=== PATIENT | female | born 1940 | race Caucasian/White ===

== ENCOUNTER 2024-09-07 11:24 | Outpatient (CLI) | payer MEDICARE | END 2024-09-07 11:25 | disposition home or self-care (01) | LOC: LABBT 11:24 | PROVIDERS: ATTEND Thoracic Surgery (Cardiothoracic Vascular Surgery) | DX: Z01.818 Encounter for other preprocedural examination (principal); I25.10 Atherosclerotic heart disease of native coronary artery without angina pectoris | CPT/HCPCS: 71046; 93005; 93010 ==

== ENCOUNTER 2024-09-07 11:30 | Inpatient (IN) | payer MEDICARE ==
[2024-09-07 12:56] LABS: #Basophils 0.04 10x3/uL (0.0-0.2); %Basophils 0.7 % (0.0-1.0); %Eosinophils 1.1 % (0.0-10.0); %Lymphocytes 23.8 % (21.0-51.0); %Monocytes 8.5 % (0.0-10.0); %Neutrophils 65.6 % (42.0-75.0); Hematocrit 42.1 % (36.0-47.0); Hemoglobin 14.1 g/dL (12.0-16.0); Mean Corpuscular HGB CONC 33.5 g/dL (32.0-36.0); Mean Corpuscular Hemoglobin 30.1 pg (27.0-31.0); Mean Platelet Volume 11.3 fL (7.4-10.4); Platelet Count 196 10x3/uL (130-400); RBC Distribution Width 12.9 % (11.5-14.5); Red Blood Cell (RBC) Count 4.68 mill/uL (4.20-5.40)
[2024-09-07 13:20] LABS: Anion Gap 16 mmol/L (10-20); BUN (Urea Nitrogen) 17 mg/dL (9.8-20.1); Calc. Creatinine Clearance 55 mL/min (70-130); Calcium 9.2 mg/dL (7.8-10.44); Carbon Dioxide 25 mmol/L (23-31); Chloride 102 mmol/L (98-107); Estimated GFR 51; Glucose 99 mg/dL (83-110); Potassium 3.6 mmol/L (3.5-5.1); Sodium 139 mmol/L (136-145)
[2024-09-08] MEDS ORDERED: Dexamethasone 4 mg/ml Vial ONE (06:23)
[2024-09-08] MEDS ORDERED: EPINEPHrine 1 MG/ML VIAL ONE (06:23)
[2024-09-08] MEDS ORDERED: Albumin 5% 500 ML ONE (06:24)
[2024-09-08] MEDS ORDERED: Bupivacaine PF 0.5% 30 ML VIAL ONE (06:24)
[2024-09-08] MEDS ORDERED: PHENYLEPHRINE-NS 100 MCG/ML 10 ML SYRINGE ONE ×3 (06:24→11:02)
[2024-09-08] MEDS ORDERED: Lidocaine 1% MPF 2 ML VIAL ONE (06:31)
[2024-09-08] MEDS ORDERED: PROPOFOL 20 ML ONE (06:35)
[2024-09-08] MEDS ORDERED: Rocuronium Bromide 10 MG/ML (10ML VIAL) ONE ×2 (06:35→08:31)
[2024-09-08] MEDS ORDERED: Ondansetron PF 4 MG/2 ML Vial ONE (06:35)
[2024-09-08] MEDS ORDERED: Fentanyl 250 MCG/5 ML VIAL ONE (06:35)
[2024-09-08] MEDS ORDERED: Midazolam HCl 2 mg/2 ml Vial ONE (06:35)
[2024-09-08] MEDS ORDERED: Lidocaine 1% PF 5 ML VIAL ONE (06:35)
[2024-09-08] MEDS ORDERED: Dexamethasone 20 MG/5 ML VIAL ONE (06:35)
[2024-09-08] MEDS ORDERED: Etomidate 40 MG (20 mL) VIAL ONE (06:36)
[2024-09-08] MEDS ORDERED: Heparin 10,000 UNITS/1 ML VIAL 30,000 UNITS in Sodium Chloride 0.9% 1,000 ML FS SCH (06:45)
[2024-09-08] MEDS ORDERED: Aminocaproic Acid 5 GM/20 ML VIAL ONE (06:54)
[2024-09-08] MEDS ORDERED: Magnesium 5 GM/10 ML VIAL ONE (06:54)
[2024-09-08] MEDS ORDERED: Potassium Chloride 60 mEq (30 mL) VIAL ONE (06:54)
[2024-09-08] MEDS ORDERED: Sodium Bicarb 50 mEq/50 ML VIAL ONE (06:54)
[2024-09-08] MEDS ORDERED: Calcium Chloride 1 GM/10 ML Abboject SYRINGE ONE (06:54)
[2024-09-08] MEDS ORDERED: Vancomycin 1 GM VIAL ONE (06:54)
[2024-09-08] MEDS ORDERED: Papaverine 60 MG/2 ML VIAL ONE (06:54)
[2024-09-08] MEDS ORDERED: Lidocaine 2% PF 100 mg/5 ml Syringe ONE (06:54)
[2024-09-08] MEDS ORDERED: Heparin 30,000 units/30 ml VIAL ONE (06:54)
[2024-09-08] MEDS ORDERED: Thrombin 5000 UNITS/5 ML VIAL ONE (06:54)
[2024-09-08] MEDS ORDERED: Protamine Sulfate 250 MG/25 ML VIAL ONE (06:54)
[2024-09-08] MEDS ORDERED: Cardioplegic Soln 1,000 ML BAG ONE (06:54)
[2024-09-08] MEDS ORDERED: Mannitol 12.5 GM/50 ML ONE (06:54)
[2024-09-08] MEDS ORDERED: Heparin 5,000 UNITS/ML VIAL ONE (06:54)
[2024-09-08] MEDS ORDERED: CEFAZOLIN 2 GM VIAL ONE (06:59)
[2024-09-08] MEDS ORDERED: Esmolol 100 MG/10 ML VIAL ONE (07:39)
[2024-09-08] MEDS ORDERED: NOREPINEPHRINE 8 MG/250 ML-D5W 250 ML ONE (09:43)
[2024-09-08] MEDS ORDERED: Amiodarone 150 MG/3 ML VIAL ONE (09:59)
[2024-09-08] MEDS ORDERED: Insulin Regular, Human 100 UNIT/ML 10 ML VIAL ONE (10:23)
[2024-09-08] MEDS ORDERED: Guaifenesin DM 100-10/5 ML UDCUP PO PRN (10:56)
[2024-09-08] MEDS ORDERED: traMADol HCl 50 MG TAB PO PRN (10:56)
[2024-09-08] MEDS ORDERED: Hetastarch 6% 500 ML 500 ML IVPB PRN (10:56)
[2024-09-08] MEDS ORDERED: Bisacodyl 10 MG SUPP PR PRN (10:56)
[2024-09-08] MEDS ORDERED: Acetaminophen 325 MG TAB PO PRN (10:56)
[2024-09-08] MEDS ORDERED: Ipratropium/Albuterol 3 ML NEB NEB PRN (10:56)
[2024-09-08] MEDS ORDERED: Mag-Al 1200 mg/1200 mg/30 ML UDCUP PO PRN (10:56)
[2024-09-08] MEDS ORDERED: Morphine 2 MG/ML VIAL SLOW IVP PRN (10:56)
[2024-09-08] MEDS ORDERED: niCARdipine 25 MG in Sodium Chloride 0.9% 250 ML 250 ML IVPB PRN (10:56)
[2024-09-08] MEDS ORDERED: NOREPINEPHRINE 8 MG/250 ML-D5W 250 ML IVPB PRN (10:56)
[2024-09-08] MEDS ORDERED: Bisacodyl 5 MG TAB PO PRN (10:56)
[2024-09-08] MEDS ORDERED: fentaNYL 50 mcg/mL 1 mL Vial SLOW IVP PRN (10:56)
[2024-09-08] MEDS ORDERED: hydrALAZINE 20 MG/ML VIAL SLOW IVP PRN (10:56)
[2024-09-08] MEDS ORDERED: Nitroglycerin 50 MG/250 ML BOT 250 ML IVPB PRN (10:56)
[2024-09-08 11:23] LABS: Actual Bicarbonate (HCO3a) 21.6 mEq/L (22-28); Base Excess (BEa) -3.2 mEq/L (-2.0 to +3.0); CO2 Tension 37.8 mmHg (35.0-45.0); Calcium, Ionized (arterial) 1.11 mmol/L (1.12-1.30); Carboxyhemoglobin (COHb) 0.5 gm% (0.0-3.0); Hematocrit-ABG 36 % (36.0-47.0); Hemoglobin (Hb) 12.1 g/dL (12.0-16.0); O2 Tension (PaO2), arterial 76.7 mmHg (> 60.0); Potassium - ABG Lab 3.18 mmol/L (3.70-5.30); pH, Arterial 7.374 (7.35-7.45)
[2024-09-08 11:25] LABS: Puncture Site Arterial Line
[2024-09-08] MEDS ORDERED: INSULIN REGULAR IN 0.9 % NACL 100 UNITS in Premix 1 BAG IVPB SCH (11:30)
[2024-09-08] MEDS ORDERED: Dextrose 50% Abboject 50 ML SYRINGE SLOW IVP PRN (11:30)
[2024-09-08] MEDS ORDERED: Glucagon 1 MG/ML KIT SC PRN (11:30)
[2024-09-08] MEDS ORDERED: Dextrose 5% in Water 1,000 ML IV PRN (11:30)
[2024-09-08] MEDS: Albumin 5% 12.5 GM (250 mL) BOT IVPB PRN (11:31)
[2024-09-08] MEDS: Insulin Regular, Human 100 UNIT/ML 10 ML VIAL SC PRN (11:46)
[2024-09-08] MEDS: Amiodarone 450 MG in Dextrose 5% in Water 250 ML IVPB SCH (11:52)
[2024-09-08] MEDS: Post-Op Insulin Drip Protocol IVPB ONE (12:01)
[2024-09-08 12:08] LABS: #Basophils 0.03 10x3/uL (0.0-0.2); %Basophils 0.2 % (0.0-1.0); %Eosinophils 0.6 % (0.0-10.0); %Lymphocytes 10.5 % (21.0-51.0); %Neutrophils 86.6 % (42.0-75.0); Hemoglobin 11.1 g/dL (12.0-16.0); Mean Corpuscular HGB CONC 33.6 g/dL (32.0-36.0); Mean Corpuscular Hemoglobin 30.3 pg (27.0-31.0); Mean Corpuscular Volume 90.2 fL (78.0-98.0); Mean Platelet Volume 11.6 fL (7.4-10.4); Platelet Count 145 10x3/uL (130-400); RBC Distribution Width 13.1 % (11.5-14.5); Red Blood Cell (RBC) Count 3.66 mill/uL (4.20-5.40)
[2024-09-08] MEDS: Ketorolac Tromethamine 30 MG (1 mL) VIAL IVP SCH (12:14)
[2024-09-08 12:25] LABS: INR-International Normal Ratio 1.2; Prothrombin Time 15.4 sec (12.0-14.7)
[2024-09-08 12:26] LABS: PTT 52.1 sec (22.9-36.1)
[2024-09-08 12:35] LABS: Anion Gap 11 mmol/L (10-20); BUN (Urea Nitrogen) 12 mg/dL (9.8-20.1); Calc. Creatinine Clearance 69 mL/min (70-130); Calcium 7.4 mg/dL (7.8-10.44); Carbon Dioxide 21 mmol/L (23-31); Chloride 111 mmol/L (98-107); Estimated GFR 68; Glucose 161 mg/dL (83-110); Sodium 140 mmol/L (136-145)
[2024-09-08] MEDS: Magnesium 2 GM/50 ML(in water) 2 GM in Premix 1 BAG IVPB SCH (13:30)
[2024-09-08] MEDS: D5 1/2 NS w/20 mEq KCL 1,000 ML IV SCH (14:17)
[2024-09-08] MEDS: Potassium Chloride 20 MEQ (100 mL) BAG IVPB PRN (14:28)
[2024-09-08] MEDS: CEFAZOLIN 2 GM in Sodium Chloride 0.9% 100 ML IVPB SCH (15:10)
[2024-09-08] MEDS: Gabapentin 100 MG CAP PO SCH (15:11)
[2024-09-08] MEDS: Ondansetron PF 4 MG/2 ML Vial IVP PRN (15:49)
[2024-09-08] MEDS: fentaNYL 50 mcg/mL 1 mL Vial SLOW IVP PRN (16:00)
[2024-09-08 17:30] LABS: Actual Bicarbonate (HCO3a) 22.2 mEq/L (22-28); Base Excess (BEa) -1.3 mEq/L (-2.0 to +3.0); CO2 Tension 33.3 mmHg (35.0-45.0); Calcium, Ionized (arterial) 1.09 mmol/L (1.12-1.30); Carboxyhemoglobin (COHb) 0.7 gm% (0.0-3.0); Hematocrit-ABG 34 % (36.0-47.0); Hemoglobin (Hb) 11.6 g/dL (12.0-16.0); O2 Tension (PaO2), arterial 104.8 mmHg (> 60.0); Potassium - ABG Lab 3.65 mmol/L (3.70-5.30); pH, Arterial 7.442 (7.35-7.45)
[2024-09-08 17:34] LABS: Hematocrit 31.4 % (36.0-47.0); Hemoglobin 10.7 g/dL (12.0-16.0)
[2024-09-08 17:41] LABS: ALV-art Gradient 67.475 mmHg (0-20); Puncture Site Arterial Line
[2024-09-08 17:43] LABS: Potassium 3.6 mmol/L (3.5-5.1)
[2024-09-08] MEDS: Famotidine/PF 20 mg/2ml Vial SLOW IVP SCH (20:33)
[2024-09-08] MEDS: traMADol HCl 50 MG TAB PO PRN (20:36)
[2024-09-09] MEDS: Albumin 5% 12.5 GM (250 mL) BOT IVPB PRN (02:52)
[2024-09-09 05:12] LABS: #Basophils Less than 0.03 10x3/uL (0.0-0.2); #Eosinophils Less than 0.03 10x3/uL (0.0-0.7); %Basophils 0.1 % (0.0-1.0); %Lymphocytes 9.7 % (21.0-51.0); %Monocytes 8.3 % (0.0-10.0); %Neutrophils 81.5 % (42.0-75.0); Hematocrit 26.8 % (36.0-47.0); Hemoglobin 8.9 g/dL (12.0-16.0); Mean Corpuscular HGB CONC 33.2 g/dL (32.0-36.0); Mean Corpuscular Hemoglobin 30.8 pg (27.0-31.0); Mean Corpuscular Volume 92.7 fL (78.0-98.0); Mean Platelet Volume 11.9 fL (7.4-10.4); Platelet Count 101 10x3/uL (130-400); RBC Distribution Width 13.6 % (11.5-14.5); Red Blood Cell (RBC) Count 2.89 mill/uL (4.20-5.40)
[2024-09-09 05:22] LABS: Anion Gap 10 mmol/L (10-20); BUN (Urea Nitrogen) 12 mg/dL (9.8-20.1); Calc. Creatinine Clearance 65 mL/min (70-130); Calcium 7.4 mg/dL (7.8-10.44); Carbon Dioxide 22 mmol/L (23-31); Chloride 110 mmol/L (98-107); Estimated GFR 59; Glucose 133 mg/dL (83-110); Potassium 3.8 mmol/L (3.5-5.1); Sodium 138 mmol/L (136-145)
[2024-09-09] MEDS: Aspirin 325 MG TAB PO SCH (07:51)
[2024-09-09] MEDS: Enoxaparin 30 MG (0.3 mL) SYRINGE SC SCH (07:51)
[2024-09-09] MEDS: Magnesium 2 GM/50 ML(in water) 2 GM in Premix 1 BAG IVPB SCH (07:53)
[2024-09-09] MEDS: Pantoprazole DR 40 MG TAB PO SCH (08:29)
[2024-09-09] MEDS ORDERED: Insulin Glargine 30 UNITS/0.3 ML VIAL SC PRN (11:19)
[2024-09-10 04:42] LABS: #Basophils Less than 0.03 10x3/uL (0.0-0.2); %Basophils 0.2 % (0.0-1.0); %Eosinophils 1.7 % (0.0-10.0); %Lymphocytes 13.7 % (21.0-51.0); %Monocytes 10.2 % (0.0-10.0); Hematocrit 27.7 % (36.0-47.0); Hemoglobin 9.2 g/dL (12.0-16.0); Mean Corpuscular HGB CONC 33.2 g/dL (32.0-36.0); Mean Corpuscular Hemoglobin 30.8 pg (27.0-31.0); Mean Corpuscular Volume 92.6 fL (78.0-98.0); Platelet Count 101 10x3/uL (130-400); RBC Distribution Width 13.6 % (11.5-14.5); Red Blood Cell (RBC) Count 2.99 mill/uL (4.20-5.40)
[2024-09-10 04:52] LABS: Anion Gap 9 mmol/L (10-20); BUN (Urea Nitrogen) 11 mg/dL (9.8-20.1); Calc. Creatinine Clearance 69 mL/min (70-130); Calcium 7.6 mg/dL (7.8-10.44); Carbon Dioxide 22 mmol/L (23-31); Chloride 105 mmol/L (98-107); Estimated GFR 63; Glucose 124 mg/dL (83-110); Potassium 4.1 mmol/L (3.5-5.1); Sodium 132 mmol/L (136-145)
[2024-09-10] MEDS ORDERED: traMADol HCl 50 MG TAB PO PRN ×2 (07:10)
[2024-09-10] MEDS ORDERED: Guaifenesin DM 100-10/5 ML UDCUP PO PRN (07:10)
[2024-09-10] MEDS ORDERED: diphenhydrAMINE 25 MG CAP PO PRN (07:10)
[2024-09-10] MEDS ORDERED: Nitroglycerin 0.4 MG TAB (25 Tab Bottle) SL PRN (07:10)
[2024-09-10] MEDS ORDERED: Bisacodyl 10 MG SUPP PR PRN (07:10)
[2024-09-10] MEDS ORDERED: Milk Of Magnesia 30 ML UDCUP PO PRN (07:10)
[2024-09-10] MEDS ORDERED: Mag-Al 1200 mg/1200 mg/30 ML UDCUP PO PRN (07:10)
[2024-09-10] MEDS ORDERED: Mineral Oil ENEMA PR PRN (07:10)
[2024-09-10] MEDS ORDERED: Bisacodyl 5 MG TAB PO PRN (07:10)
[2024-09-10] MEDS ORDERED: Artificial Tear Ophth Sol 15 ML BOT EA EYE PRN (07:10)
[2024-09-10] MEDS ORDERED: Ipratropium/Albuterol 3 ML NEB NEB PRN (07:25)
[2024-09-10] MEDS: Enoxaparin 40 MG (0.4 mL) SYRINGE SC SCH (07:54)
[2024-09-10] MEDS: Furosemide 40 MG TAB PO SCH (07:55)
[2024-09-10] MEDS: Amiodarone 200 MG TAB PO SCH (07:56)
[2024-09-10] MEDS: Potassium Chloride 10 MEQ TAB PO SCH (07:56)
[2024-09-10 15:51] VITALS: BMI 36.7
[2024-09-12 08:07] VITALS: TEMP 98.4
[2024-09-12 12:19] VITALS: BP 147/79
== END 2024-09-12 12:15 | disposition home or self-care (01) | DRG 236 ==
LOC: SURG A 09-08 05:52 → CCU 09-08 10:27 → EDSTATUS 09-08 11:30 → PCU 09-10 09:30
PROVIDERS: ADMIT Thoracic Surgery (Cardiothoracic Vascular Surgery); ATTEND Thoracic Surgery (Cardiothoracic Vascular Surgery)
PROC: 021109W Bypass Coronary Artery, Two Arteries from Aorta with Autologous Venous Tissue, Open Approach (ICD-10-PCS; principal; 2024-09-08)
PROC: 02100Z9 Bypass Coronary Artery, One Artery from Left Internal Mammary, Open Approach (ICD-10-PCS; 2024-09-08)
PROC: 06BQ4ZZ Excision of Left Saphenous Vein, Percutaneous Endoscopic Approach (ICD-10-PCS; 2024-09-08)
PROC: 02L70CK Occlusion of Left Atrial Appendage with Extraluminal Device, Open Approach (ICD-10-PCS; 2024-09-08)
PROC: 5A1221Z Performance of Cardiac Output, Continuous (ICD-10-PCS; 2024-09-08)
PROC: 3E043XZ Introduction of Vasopressor into Central Vein, Percutaneous Approach (ICD-10-PCS; 2024-09-08)
PROC: 30243J0 Transfusion of Autologous Serum Albumin into Central Vein, Percutaneous Approach (ICD-10-PCS; 2024-09-08)
DX: I25.10 Atherosclerotic heart disease of native coronary artery without angina pectoris (principal); N18.30 Chronic kidney disease, stage 3 unspecified; I12.9 Hypertensive chronic kidney disease with stage 1 through stage 4 chronic kidney disease, or unspecified chronic kidney disease; E78.5 Hyperlipidemia, unspecified; E66.9 Obesity, unspecified; G47.33 Obstructive sleep apnea (adult) (pediatric); Z87.891 Personal history of nicotine dependence; Z79.899 Other long term (current) drug therapy; Z79.82 Long term (current) use of aspirin; Z68.36 Body mass index [BMI] 36.0-36.9, adult
CPT/HCPCS: 36416; 36430; 71045; 71046; 80048; 82805; 85025; 85610; 85730; 86850; 86900; 86901; 93005; 93010; 93798; 94002; A4311; A4648; C1751; C1889; J0171; J0282; J0665; J1100; J1642; J1650; J1815; J1885; J2250; J2405; J2704; J3010; J3475; J3480; J3490; J7070; P9045

== ENCOUNTER 2025-04-09 19:10 | Inpatient (IN) | payer MEDICARE ==
[2025-04-09 19:40] LABS: #Basophils 0.03 10x3/uL (0.0-0.2); #Eosinophils 0.16 10x3/uL (0.0-0.7); #Monocytes 0.46 10x3/uL (0.11-0.59); #Neutrophils 2.57 10x3/uL (1.40-6.50); %Basophils 0.7 % (0.0-1.0); %Eosinophils 3.8 % (0.0-10.0); %Lymphocytes 21.6 % (21.0-51.0); %Monocytes 11.1 % (0.0-10.0); %Neutrophils 61.8 % (42.0-75.0); Hematocrit 36.2 % (36.0-47.0); Hemoglobin 12.2 g/dL (12.0-16.0); Mean Corpuscular Hemoglobin 30.7 pg (27.0-31.0); Mean Corpuscular Volume 91.0 fL (78.0-98.0); Platelet Count 165 10x3/uL (130-400); Red Blood Cell (RBC) Count 3.98 mill/uL (4.20-5.40); White Blood Cell (WBC) Count 4.16 10x3/uL (4.8-10.8)
[2025-04-09 19:56] LABS: INR-International Normal Ratio 1.1; Prothrombin Time 14.1 sec (12.0-14.7)
[2025-04-09 19:57] LABS: PTT 35.2 sec (22.9-36.1)
[2025-04-09 20:01] LABS: ALT (SGPT) 22 U/L (Less than 34); AST (SGOT) 30 U/L (11-34); Albumin 2.8 g/dL (3.1-4.5); Alkaline Phosphatase 120 U/L (40-110); Anion Gap 15 mmol/L (10-20); BUN (Urea Nitrogen) 21 mg/dL (9.8-20.1); Bilirubin, Total 0.3 mg/dL (0.3-1.2); Calc. Creatinine Clearance 0 mL/min (70-130); Calcium 8.5 mg/dL (7.8-10.44); Carbon Dioxide 20 mmol/L (23-31); Chloride 106 mmol/L (98-107); Globulin 3.3 g/dL (2.4-3.5); Glucose 127 mg/dL (83-110); Potassium 4.9 mmol/L (3.5-5.1); Sodium 136 mmol/L (136-145)
[2025-04-09 20:06] LABS: Troponin I Less than 0.010 ng/mL (< 0.028)
[2025-04-09 21:10] LABS: Bacteria/HPF None Seen HPF (None Seen); CAUTI Indications for Culture Alt mental st,lethar; Glucose, Urine (Dipstick) Normal (Negative); Leukocyte Negative Leu/uL (Negative); Protein, Urine (Dipstick) Negative (Neg-Trace); RBC/HPF 0-3 HPF (0-3); Specific Gravity, Urine 1.011 (1.002-1.036); WBC/HPF 0-3 HPF (0-3)
[2025-04-09 21:12] LABS: Urine Culture Reflex No No
[2025-04-09] MEDS ORDERED: Vancomycin 1 GM/200 ML (FROZEN) BAG ONE (21:33)
[2025-04-09 21:50] LABS: Actual Bicarbonate (HCO3a) 19.9 mEq/L (22-28); Analyzer IN Cardio ER; Base Excess (BEa) -5.2 mEq/L (-2.0 to +3.0); CO2 Tension 37.5 mmHg (35.0-45.0); Calcium, Ionized (arterial) 1.14 mmol/L (1.12-1.30); Hematocrit-ABG 37 % (36.0-47.0); Hemoglobin (Hb) 12.7 g/dL (12.0-16.0); O2 Tension (PaO2), arterial 79.7 mmHg (> 60.0); Potassium - ABG Lab 3.99 mmol/L (3.70-5.30); pH, Arterial 7.343 (7.35-7.45)
[2025-04-09 21:51] LABS: ALV-art Gradient 23.155 mmHg (0-20); Puncture Site lr
[2025-04-09 22:46] LABS: Cocaine Metabolite Screen Negative (Negative); THC/Cannabinoid Screen Negative (Negative); Tricyclic Screen Negative (Negative)
[2025-04-09 23:06] VITALS: BMI 30.2
[2025-04-10] MEDS ORDERED: hydrALAZINE 20 MG/ML VIAL SLOW IVP PRN (00:53)
[2025-04-10] MEDS ORDERED: Calcium Carbonate 500 MG ChewTAB PO PRN (01:26)
[2025-04-10] MEDS ORDERED: Acetaminophen 325 MG TAB PO PRN (01:26)
[2025-04-10 03:48] LABS: #Basophils 0.03 10x3/uL (0.0-0.2); #Eosinophils 0.09 10x3/uL (0.0-0.7); #Monocytes 0.68 10x3/uL (0.11-0.59); #Neutrophils 3.86 10x3/uL (1.40-6.50); %Basophils 0.5 % (0.0-1.0); %Eosinophils 1.6 % (0.0-10.0); %Lymphocytes 14.3 % (21.0-51.0); %Monocytes 12.4 % (0.0-10.0); %Neutrophils 70.7 % (42.0-75.0); Hematocrit 38.7 % (36.0-47.0); Hemoglobin 12.6 g/dL (12.0-16.0); Mean Corpuscular Hemoglobin 30.1 pg (27.0-31.0); Mean Corpuscular Volume 92.4 fL (78.0-98.0); Platelet Count 157 10x3/uL (130-400); Red Blood Cell (RBC) Count 4.19 mill/uL (4.20-5.40); White Blood Cell (WBC) Count 5.47 10x3/uL (4.8-10.8)
[2025-04-10 04:18] LABS: CRP,High Sensitivity (Inhouse) 0.64 mg/dL (< or = 0.5)
[2025-04-10 04:19] LABS: ALT (SGPT) 22 U/L (Less than 34); AST (SGOT) 18 U/L (11-34); Albumin 3.1 g/dL (3.1-4.5); Alkaline Phosphatase 122 U/L (40-110); Anion Gap 12 mmol/L (10-20); BUN (Urea Nitrogen) 17 mg/dL (9.8-20.1); Bilirubin, Total 0.3 mg/dL (0.3-1.2); Calc. Creatinine Clearance 47 mL/min (70-130); Calcium 8.4 mg/dL (7.8-10.44); Carbon Dioxide 23 mmol/L (23-31); Chloride 106 mmol/L (98-107); Globulin 3.2 g/dL (2.4-3.5); Glucose 131 mg/dL (83-110); Magnesium 1.9 mg/dL (1.6-2.6); Potassium 4.1 mmol/L (3.5-5.1); Sodium 137 mmol/L (136-145)
[2025-04-10 04:23] LABS: Troponin I 0.014 ng/mL (< 0.028)
[2025-04-10] MEDS: Ergocalciferol 1.25 MG(50,000 UNITS) CAP PO SCH (09:25)
[2025-04-10] MEDS: Senokot S 8.6-50 MG TAB PO SCH (09:25)
[2025-04-10] MEDS: levETIRAcetam 500 MG (5 mL) VIAL SLOW IVP SCH (09:25)
[2025-04-10] MEDS ORDERED: GUAIFENESIN SF SOLN 200 MG/10 ML UDCUP PO PRN (13:00)
[2025-04-10] MEDS: Amiodarone 200 MG TAB PO SCH (21:18)
[2025-04-11 03:47] LABS: #Basophils 0.03 10x3/uL (0.0-0.2); #Eosinophils 0.21 10x3/uL (0.0-0.7); #Monocytes 0.53 10x3/uL (0.11-0.59); #Neutrophils 3.05 10x3/uL (1.40-6.50); %Basophils 0.6 % (0.0-1.0); %Eosinophils 4.3 % (0.0-10.0); %Lymphocytes 21.4 % (21.0-51.0); %Monocytes 10.9 % (0.0-10.0); %Neutrophils 62.6 % (42.0-75.0); Hematocrit 36.6 % (36.0-47.0); Hemoglobin 12.3 g/dL (12.0-16.0); Mean Corpuscular Hemoglobin 30.4 pg (27.0-31.0); Mean Corpuscular Volume 90.6 fL (78.0-98.0); Platelet Count 159 10x3/uL (130-400); Red Blood Cell (RBC) Count 4.04 mill/uL (4.20-5.40); White Blood Cell (WBC) Count 4.87 10x3/uL (4.8-10.8)
[2025-04-11 04:08] LABS: ALT (SGPT) 20 U/L (Less than 34); AST (SGOT) 19 U/L (11-34); Albumin 3.2 g/dL (3.1-4.5); Alkaline Phosphatase 113 U/L (40-110); Anion Gap 13 mmol/L (10-20); BUN (Urea Nitrogen) 9 mg/dL (9.8-20.1); Bilirubin, Total 0.4 mg/dL (0.3-1.2); Calc. Creatinine Clearance 54 mL/min (70-130); Calcium 8.7 mg/dL (7.8-10.44); Carbon Dioxide 24 mmol/L (23-31); Chloride 108 mmol/L (98-107); Globulin 3.1 g/dL (2.4-3.5); Glucose 107 mg/dL (83-110); Magnesium 1.9 mg/dL (1.6-2.6); Potassium 3.4 mmol/L (3.5-5.1); Sodium 142 mmol/L (136-145)
[2025-04-11] MEDS ORDERED: Non-Formulary Item 1 EACH (Potassium Chloride [Potassium Chloride] 20 MEQ Tablet.Er) PO SCH (09:00)
[2025-04-11] MEDS: Aspirin Chewable 81 MG TAB PO SCH (09:48)
[2025-04-12 04:46] LABS: #Basophils 0.05 10x3/uL (0.0-0.2); #Eosinophils 0.26 10x3/uL (0.0-0.7); #Monocytes 0.64 10x3/uL (0.11-0.59); #Neutrophils 2.18 10x3/uL (1.40-6.50); %Basophils 1.2 % (0.0-1.0); %Eosinophils 6.1 % (0.0-10.0); %Lymphocytes 26.4 % (21.0-51.0); %Monocytes 15.0 % (0.0-10.0); %Neutrophils 50.8 % (42.0-75.0); Hematocrit 40.9 % (36.0-47.0); Hemoglobin 13.4 g/dL (12.0-16.0); Mean Corpuscular Hemoglobin 29.7 pg (27.0-31.0); Mean Corpuscular Volume 90.7 fL (78.0-98.0); Platelet Count 147 10x3/uL (130-400); Red Blood Cell (RBC) Count 4.51 mill/uL (4.20-5.40); White Blood Cell (WBC) Count 4.28 10x3/uL (4.8-10.8)
[2025-04-12 05:01] LABS: CRP,High Sensitivity (Inhouse) 1.05 mg/dL (< or = 0.5)
[2025-04-12 05:02] LABS: ALT (SGPT) 25 U/L (Less than 34); AST (SGOT) 22 U/L (11-34); Albumin 3.1 g/dL (3.1-4.5); Alkaline Phosphatase 115 U/L (40-110); Anion Gap 14 mmol/L (10-20); BUN (Urea Nitrogen) 8 mg/dL (9.8-20.1); Bilirubin, Total 0.5 mg/dL (0.3-1.2); Calc. Creatinine Clearance 58 mL/min (70-130); Calcium 8.8 mg/dL (7.8-10.44); Carbon Dioxide 21 mmol/L (23-31); Chloride 105 mmol/L (98-107); Globulin 3.4 g/dL (2.4-3.5); Glucose 97 mg/dL (83-110); Magnesium 1.9 mg/dL (1.6-2.6); Potassium 3.5 mmol/L (3.5-5.1); Sodium 136 mmol/L (136-145)
[2025-04-13 04:21] LABS: #Basophils 0.03 10x3/uL (0.0-0.2); #Eosinophils 0.26 10x3/uL (0.0-0.7); #Monocytes 0.51 10x3/uL (0.11-0.59); #Neutrophils 2.59 10x3/uL (1.40-6.50); %Basophils 0.7 % (0.0-1.0); %Eosinophils 5.7 % (0.0-10.0); %Lymphocytes 25.3 % (21.0-51.0); %Monocytes 11.2 % (0.0-10.0); %Neutrophils 56.9 % (42.0-75.0); Hematocrit 44.2 % (36.0-47.0); Hemoglobin 14.7 g/dL (12.0-16.0); Mean Corpuscular Hemoglobin 29.9 pg (27.0-31.0); Mean Corpuscular Volume 89.8 fL (78.0-98.0); Platelet Count 165 10x3/uL (130-400); Red Blood Cell (RBC) Count 4.92 mill/uL (4.20-5.40); White Blood Cell (WBC) Count 4.55 10x3/uL (4.8-10.8)
[2025-04-13] MEDS: Amoxicillin/Potassium Clav 875 MG TAB PO SCH (20:25)
[2025-04-14 07:08] LABS: #Basophils 0.04 10x3/uL (0.0-0.2); #Eosinophils 0.24 10x3/uL (0.0-0.7); #Monocytes 0.70 10x3/uL (0.11-0.59); #Neutrophils 3.40 10x3/uL (1.40-6.50); %Basophils 0.7 % (0.0-1.0); %Eosinophils 4.3 % (0.0-10.0); %Lymphocytes 20.8 % (21.0-51.0); %Monocytes 12.6 % (0.0-10.0); %Neutrophils 61.1 % (42.0-75.0); Hematocrit 42.8 % (36.0-47.0); Hemoglobin 14.3 g/dL (12.0-16.0); Mean Corpuscular Hemoglobin 29.7 pg (27.0-31.0); Mean Corpuscular Volume 88.8 fL (78.0-98.0); Platelet Count 164 10x3/uL (130-400); Red Blood Cell (RBC) Count 4.82 mill/uL (4.20-5.40); White Blood Cell (WBC) Count 5.57 10x3/uL (4.8-10.8)
[2025-04-14] MEDS: QUEtiapine 25 MG TAB PO SCH (09:44)
[2025-04-14] MEDS: Dextrose 50% Abboject 50 ML SYRINGE SLOW IVP SCH (18:18)
[2025-04-15 04:11] LABS: #Basophils 0.05 10x3/uL (0.0-0.2); #Eosinophils 0.21 10x3/uL (0.0-0.7); #Monocytes 0.52 10x3/uL (0.11-0.59); #Neutrophils 2.79 10x3/uL (1.40-6.50); %Basophils 1.1 % (0.0-1.0); %Eosinophils 4.5 % (0.0-10.0); %Lymphocytes 22.8 % (21.0-51.0); %Monocytes 11.2 % (0.0-10.0); %Neutrophils 60.0 % (42.0-75.0); Hematocrit 43.4 % (36.0-47.0); Hemoglobin 14.4 g/dL (12.0-16.0); Mean Corpuscular Hemoglobin 29.9 pg (27.0-31.0); Mean Corpuscular Volume 90.2 fL (78.0-98.0); Platelet Count 178 10x3/uL (130-400); Red Blood Cell (RBC) Count 4.81 mill/uL (4.20-5.40); White Blood Cell (WBC) Count 4.65 10x3/uL (4.8-10.8)
[2025-04-15] MEDS: QUEtiapine 25 MG TAB PO SCH ×2 (09:14→20:55)
[2025-04-15 12:45] VITALS: BMI 30.2
[2025-04-15] MEDS: Thiamine 100 MG TAB PO SCH (21:12)
[2025-04-15] MEDS: levETIRAcetam 500 MG TAB PO SCH (21:12)
[2025-04-16 04:16] LABS: #Basophils 0.04 10x3/uL (0.0-0.2); #Eosinophils 0.15 10x3/uL (0.0-0.7); #Monocytes 0.56 10x3/uL (0.11-0.59); #Neutrophils 3.73 10x3/uL (1.40-6.50); %Basophils 0.7 % (0.0-1.0); %Eosinophils 2.6 % (0.0-10.0); %Lymphocytes 22.4 % (21.0-51.0); %Monocytes 9.7 % (0.0-10.0); %Neutrophils 64.3 % (42.0-75.0); Hematocrit 41.5 % (36.0-47.0); Hemoglobin 13.6 g/dL (12.0-16.0); Mean Corpuscular Hemoglobin 30.0 pg (27.0-31.0); Mean Corpuscular Volume 91.4 fL (78.0-98.0); Platelet Count 179 10x3/uL (130-400); Red Blood Cell (RBC) Count 4.54 mill/uL (4.20-5.40); White Blood Cell (WBC) Count 5.80 10x3/uL (4.8-10.8)
[2025-04-16 08:28] LABS: Anion Gap 13 mmol/L (10-20); BUN (Urea Nitrogen) 17 mg/dL (9.8-20.1); Calc. Creatinine Clearance 49 mL/min (70-130); Calcium 9.3 mg/dL (7.8-10.44); Carbon Dioxide 21 mmol/L (23-31); Chloride 108 mmol/L (98-107); Glucose 103 mg/dL (83-110); Potassium 4.1 mmol/L (3.5-5.1); Sodium 138 mmol/L (136-145)
[2025-04-16] MEDS: Thiamine 100 MG TAB PO SCH (10:32)
[2025-04-16] MEDS: levETIRAcetam 500 MG TAB PO SCH (10:32)
[2025-04-16] MEDS: levETIRAcetam 500 mg/5 ml Oral Solution PO SCH ×2 (11:03→20:48)
[2025-04-16 20:04] VITALS: BP 121/71; TEMP 98.8
== END 2025-04-16 21:21 | DRG 177 ==
LOC: ERS 19:10 → ERHOLD 22:15 → PCU 04-10 01:34
PROVIDERS: ADMIT Internal Medicine; ATTEND Family Medicine
DX: J69.0 Pneumonitis due to inhalation of food and vomit (principal); G93.41 Metabolic encephalopathy; N17.9 Acute kidney failure, unspecified; E78.5 Hyperlipidemia, unspecified; I48.0 Paroxysmal atrial fibrillation; I25.10 Atherosclerotic heart disease of native coronary artery without angina pectoris; I95.9 Hypotension, unspecified; G47.33 Obstructive sleep apnea (adult) (pediatric); N18.30 Chronic kidney disease, stage 3 unspecified; I12.9 Hypertensive chronic kidney disease with stage 1 through stage 4 chronic kidney disease, or unspecified chronic kidney disease; Z95.5 Presence of coronary angioplasty implant and graft; Z79.891 Long term (current) use of opiate analgesic; Z79.899 Other long term (current) drug therapy; Z87.891 Personal history of nicotine dependence; Z88.8 Allergy status to other drugs, medicaments and biological substances
CPT/HCPCS: 36415; 36416; 51701; 70450; 70551; 71045; 74018; 80048; 80053; 80306; 80307; 81001; 82140; 82306; 82550; 82607; 82805; 83605; 83690; 83735; 83880; 84145; 84439; 84443; 84484; 85025; 85379; 85610; 85730; 86141; 87040; 93005; 93306; 93970; 96361; 96365; 96374; 96375; J0461; J0696; J1953; J2543; J3373; J3411; J7042; J7999

== ENCOUNTER 2025-04-22 15:10 | Outpatient (CLI) | payer MEDICARE | END 2025-04-22 15:11 | disposition home or self-care (01) | LOC: RAD 15:10 | PROVIDERS: ATTEND Student in an Organized Health Care Education/Training Program | DX: R41.82 Altered mental status, unspecified (principal) | CPT/HCPCS: 70450 ==